=== PATIENT | female | born 1995 | race American Indian/Alaskan Native ===

== ENCOUNTER 2022-04-10 21:04 | Emergency (ER) | payer MEDICAID, SELFPAY ==
[2022-04-10] VITALS (7 sets, daily range): BP systolic 107–118; BP diastolic 75–85; PULSE 94–128; RESP 14–23; TEMP 36.7; O2SAT 98–100
--- NOTE | ~2022-04-10 | CT_ITS ---
EXAMINATION: CT abdomen pelvis wo con DATE: 04/11/2022 00:44 INDICATION: Abdominal pain. Vomiting. Recent . TECHNIQUE: Computed tomography (CT) of the abdomen and pelvis was performed without intravenous contr ast. Automated exposure control and iterative reconstruction technique were employed. The dose-length product was 255.98 mGy-cm. COMPARISON: None. FINDINGS: The visualized portions of the lung bases demonstrate mild atelectasis on the left. No pleu ral effusion. The heart size is normal. No pericardial effusion. Calcifications in the liver consiste nt with old granulomatous disease. The gallbladder, spleen, pancreas, adrenal glands, and left kidney are normal. There is a 3 mm stone in right kidney. There are no dilated loops of bowel. The appendix is normal. There are no pathologically enlarged lymph nodes. There is no free intraperitoneal fluid. IMPRESSION: 1. 3 mm nonobstructing right kidney stone. Reviewed, dictated and finalized at location A.
[2022-04-10 22:57] LABS: Basophils Absolute Auto 0.1 K/mm3 (0.0-0.1); Basophils Percent Auto 0.5 % (0.2-1.2); Eosinophils Absolute Auto 0.1 K/mm3 (0-0.3); Eosinophils Percent Auto 0.7 % (0-4.4); Hematocrit 48.3 % (37.0-47.0); Hemoglobin 16.3 g/dL (12.0-15.0); Immature Granulocyte Absolute 0.06 K/mm3 (0.00-0.031); Immature Granulocyte Percent A 0.4 % (0-0.5); Lymphocytes Absolute Auto 2.73 K/mm3 (0.9-3.2); Lymphocytes Percent Auto 18.4 % (18.3-44.2); Mean Corpuscular HGB Conc 33.7 g/dl (32-36); Mean Corpuscular Hemoglobin 30.9 pg (26-34); Mean Corpuscular Volume 91.7 fl (80-100); Mean Platelet Volume 9.1 fl (7.4-10.4); Monocytes Absolute Auto 0.9 K/mm3 (0.1-0.6); Monocytes Percent Auto 5.7 % (2.6-8.5); Neutrophils Percent Auto 74.3 % (45.5-73.1); Platelet Count Result 459 k/mm3 (150-375); Red Blood Count 5.27 M/mm3 (4.2-5.4); Red Cell Distribution Width 13.1 % (11.5-14.5); White Blood Count 14.9 K/mm3 (4.5-10.0)
[2022-04-10 23:10] LABS: Alanine Aminotransferase 57 U/L (6-35); Alkaline Phosphatase 70 U/L (38-126); Anion Gap 14 mmol/L (8-16); Aspartate Amino Transferase 64 U/L (14-36); Bilirubin,Total 0.8 mg/dL (0.2-1.3); Blood Urea Nitrogen 8 mg/dL (7-17); Calcium 10.8 mg/dL (8.4-10.2); Carbon Dioxide 25 mmol/L (22-30); Chloride 103 mmol/L (98-107); Estimated Glomerular Filt Rate > 60; Glucose 130 mg/dL (65-110); Lipase 92 U/L (23-300); Potassium 4.3 mmol/L (3.4-5.0); Sodium 142 mmol/L (137-145)
--- NOTE | 2022-04-10 23:17 | ED.NAVMDI ---
HPI - Nausea/Vomiting/Diarrhea General Chief complaint: Nausea/Vomiting/Diarrhea <BRI Self Last Filed: 04/11/22 03:46> Stated complaint: vomiting blood <BRI Self Last Filed: 04/11/22 03:46> Time Seen by Provider: 04/10/22 23:06 <BRI Self Last Filed: 04/11/22 03:46> Source: patient <BRI Self Last Filed: 04/11/22 03:46> Mode of arrival: ambulatory <BRI Self Last Filed: 04/11/22 03:46> Limitations: no limitations <BRI Self Last Filed: 04/11/22 03:46> History of Present Illness HPI Narrative: This is a 27-year-old female that presents to the emergency department for abdominal pain and vomiting. Reports a recent elective at [facility] in the middle of March. She has had ongoing abdominal pain and vomiting since. She was actually admitted to [facility] on March 25 for IV antibiotics for diagnosis of endometritis. She has continued metronidazole and doxycycline. She is almost finished with her antibiotics. She continues to experience vomiting and abdominal discomfort. Today she saw small amount of blood in her vomit. Denies fever or dysuria. <BRI Self Last Filed: 04/11/22 03:46> Related Data Allergies/Adverse reactions: Allergies Allergy/AdvReac Type Severity Reaction Status Date / Time No Known Allergies Allergy Verified 04/10/22 22:05 <BRI Self Last Filed: 04/11/22 03:46> Review of Systems Review of Systems: CONSTITUTIONAL: Denies fever GASTROINTESTINAL: Reports abdominal pain, nausea, vomiting GENITOURINARY: Denies dysuria or hematuria. <BRI Self Last Filed: 04/11/22 03:46> All systems reviewed & are unremarkable except as noted in HPI and below <BRI Slef Last Filed: 04/11/22 03:46> [facility] Past Medical History Medical History: Medical History (Updated 04/11/22 @ 02:27 by Onelia Camacho PA-C) No active medical problems <Onelia Camacho PA-C - Last Filed: 04/11/22 03:46> Social History Social History: Social History (Updated 04/10/22 @ 23:20 by Onelia Camacho PA-C) Smoking status: Never smoker <Onelia Camacho PA-C - Last Filed: 04/11/22 03:46> Exam Narrative: GENERAL: Well-appearing, well-nourished, and in no acute distress. HEAD: Normocephalic, atraumatic. EYES: EOMI. CHEST: Clear to auscultation. No respiratory distress. No wheezes rales or rhonchi HEART: Regular rate and rhythm. No murmur heard. Normal peripheral pulses. ABDOMEN: Soft, nondistended, normal active bowel sounds. Mild tenderness to palpation in the epigastrium, without guarding EXTREMITIES: Normal range of motion. No edema. SKIN: Warm, dry, no rash. NEURO: No focal deficits. Alert and oriented x3. PSYCH: Normal mood and affect <Onelia Camacho PA-C - Last Filed: 04/11/22 03:46> Course Reevaluation(s) Reevaluation #1: Received signout on the patient pending repeat lactate. On reevaluation patient reports feeling much improved repeat lactate was improved. Patient reports he already has an appointment with OB. Patient family are comfortable with outpatient plan. <Felix Contreras MD - Last Filed: 04/11/22 05:02> Date: 04/11/22 <Felix Contreras MD - Last Filed: 04/11/22 05:02> Time: 04:36 <Felix Contreras MD - Last Filed: 04/11/22 05:02> Consultations Consultation #1: Spoke with Dr. Clements about patient and workup. Agrees with further outpatient follow up as she has scheduled <Onelia Camacho PA-C - Last Filed: 04/11/22 03:46> Date: 04/11/22 <Onelia Camacho PA-C - Last Filed: 04/11/22 03:46> Vital Signs Vital signs: Vital Signs Temperature 36.7 C 04/10/22 22:03 Pulse Rate 115 H 04/10/22 22:03 Respiratory Rate 18 04/10/22 22:03 Blood Pressure 113/85 04/10/22 22:03 Pulse Oximetry 98 04/10/22 22:03 Oxygen Delivery Room Air 04/10/22 22:
[2022-04-10] MEDS: SODIUM CHLORIDE 0.9% IV 1,000 ML 999 ML IV CONT (23:47)
[2022-04-10] MEDS: ONDANSETRON INJ 4 MG/2 ML VIAL IV PUSH (23:48)
[2022-04-10] MEDS: PANTOPRAZOLE SODIUM IV 40 MG VIAL IV PUSH (23:48)
[2022-04-11] VITALS (20 sets, daily range): BP systolic 96–116; BP diastolic 67–86; PULSE 73–106; RESP 15–27; O2SAT 99–100
[2022-04-11 00:06] LABS: Lactic Acid Reflex 2.5 mmol/L (0.7-2.0)
[2022-04-11 00:08] LABS: INR 1.2; Prothrombin Time 14.3 Seconds (11.1-14.7)
[2022-04-11 00:09] LABS: Partial Thromboplastin Time 28.4 SECONDS (22.3-36.8)
[2022-04-11 00:41] LABS: Appearance Urine Clear (Clear); Bilirubin Urine Negative (Negative); Blood Urine Trace-lysed (Negative); Color Urine Yellow (Yellow); Glucose Urine UA Negative (Negative); Ketones Urine Negative (Negative); Leukocyte Esterase Ur Negative LEU/UL (Negative); Nitrate Urine Negative (Negative); Protein Urine 1+ mg/dL (Negative); Specific Grav Ur 1.025 (1.001-1.035); Urobilinogen Urine 0.2 mg/dL (<2.0); pH Urine 5.5 (5.0-9.0)
[2022-04-11 00:54] LABS: Mucus Urine Rare /lpf; Squamous Epithelial Cell Urine Moderate /hpf (Few); WBC Urine 21-30 /hpf
[2022-04-11 00:58] LABS: Add Urine Microscopic? YES
[2022-04-11 01:03] LABS: Beta HCG Quantitative 4.24 mIU/ML
[2022-04-11] MEDS: SODIUM CHLORIDE 0.9% IV 1,000 ML 999 ML IV CONT (02:10)
[2022-04-11] MEDS: METOCLOPRAMIDE HCL INJ 10 MG/2 ML VIAL IV PUSH (02:39)
[2022-04-11] MEDS: diphenhydrAMINE HCl INJ 50 MG/ML VIAL 25 MG IV PUSH (02:39)
[2022-04-11 02:55] LABS: Reflex Lactic Acid Yes or No Add Lactic
== END 2022-04-11 04:59 | disposition home or self-care (01) ==
PROVIDERS: Physician Assistant; Emergency Provider Emergency Medicine
DX: R11.2 Nausea with vomiting, unspecified (principal)
CPT/HCPCS: 36415; 74176; 80053; 81001; 81025; 83605; 83690; 84702; 85025; 85610; 85730; 87040; 87086; 87088; 96361; 96365; 96374; 96375; 99284; C9113; J0131; J1200; J2405; J2765; J7030

== ENCOUNTER 2023-01-03 14:01 | Emergency (ER) | payer OTHER, SELFPAY ==
--- NOTE | ~2023-01-03 | XR_ITS ---
EXAMINATION: XR wrist RT min 3V DATE: 01/03/2023 14:15 INDICATION: Right wrist injury and pain. TECHNIQUE: 4 views of right wrist were obtained. COMPARISON: None. FINDINGS: Bone alignment is normal. No fracture. Joint spaces are well maintained. IMPRESSION: 1. Normal right wrist. Reviewed, dictated and finalized at location A. [facility] IMPRESSION: 1. Normal right wrist.
[2023-01-03 14:03] VITALS: BP 117/81; PULSE 94; RESP 14; TEMP 36.6; O2SAT 100
--- NOTE | 2023-01-03 14:26 | ED.UPPEXIN ---
HPI - Extremity Injury (Upper) General Chief Complaint: Extremity Injury, Upper Stated Complaint: right wrist injury Time Seen by Provider: 01/03/23 14:07 History of Present Illness HPI narrative: Patient is a 27-year-old female who presents ER with right wrist pain. She was at work using machine when her hand slipped off and suffered a ripping sensation. This occurred 5 days ago. Patient began having pain 2 days ago. She has been wrapping her wrist and took ibuprofen x2. Pain continues today so she went to be evaluated. She reports some tingling over the dorsal aspect of her hand but not in her fingers or the palm. She has pain with range of motion but is able to still perform movements. No additional concerns. Related Data Allergies Allergy/AdvReac Type Severity Reaction Status Date / Time No Known Allergies Allergy Verified 01/03/23 14:05 Review of Systems Musculoskeletal: Musculoskeletal: Reports arthralgias, Denies joint swelling and Denies muscle cramps Integumentary/Breasts: Skin/Breast: Denies erythema and Denies rash Neurologic: Denies focal weakness and Denies numbness Comments: Tingling in the hand right side PMFSH Past Medical History Medical History (Updated 01/03/23 @ 14:32 by Shimon Bright MD) Depression Surgical History Surgical History (Updated 01/03/23 @ 14:32 by Shimon Bright MD) No history of previous surgery Social History Social History (System 05/12/22 @ 16:11 by Magen Ceja) Smoking status: Never smoker Exam Narrative: GENERAL: Well-appearing, well-nourished, and in no acute distress. HEAD: Normocephalic, atraumatic. EXTREMITIES: Focused exam of the right wrist reveals normal range of motion with flexion extension at the wrist as well as in the fingers. There is discomfort over the dorsal wrist without swelling or bruising or abrasion. Ecchymosis mild tenderness at the ulnar styloid. Neurovascular intact throughout the right hand and wrist. Normal range of motion no tenderness at the right elbow. SKIN: Warm, dry, no rash. NEURO: No focal deficits. Alert and oriented x3. PSYCH: Normal mood and affect. Course Course Emergency Course: Patient resting comfortably. Informed of results. Recommend purchasing a cock up wrist splint at a local box store. Also recommend scheduled anti-inflammatories. Discharge home Vital Signs Vital signs: Vital Signs Temperature 97.8 F 01/03/23 14:03 Pulse Rate 94 01/03/23 14:03 Respiratory Rate 14 01/03/23 14:03 Blood Pressure 117/81 01/03/23 14:03 Pulse Oximetry 100 01/03/23 14:03 Temperature 97.8 F 01/03/23 14:03 Pulse Rate 94 01/03/23 14:03 Respiratory Rate 14 01/03/23 14:03 Blood Pressure 117/81 01/03/23 14:03 Pulse Oximetry 100 01/03/23 14:03 MDM - Extremity Injury (Upper) Imaging Data Radiologist's impression: ITS Impressions Wrist X-Ray 01/03/23 14:17 IMPRESSION: 1. Normal right wrist. Discharge Plan Discharge Clinical Impression: Sprain and strain of wrist Patient Disposition: Home, Self-Care Condition: Stable Instructions: Wrist Sprain (ED) Additional Instructions: There is no evidence of broken bones in your wrist. It is recommended you purchase a cock up wrist splint from [employer] or [facility] ([place]). The splint for comfort. Take ibuprofen 3 times a day to help with inflammation. Follow-up with your primary care doctor for further treatment evaluation. Return the ER if you suffer additional injury, if fingers are cold water, or you have additional concerns. Prescriptions: New ibuprofen 600 mg tablet 600 mg PO TID Qty: 21 0RF No Action ondansetron 4 mg tablet,disintegrating 4 mg PO Q8H PRN (Reason: nausea and vomiting) Qty: 10 0RF levothyroxine 75 mcg tablet 75 mcg PO DAILY Qty: 90 3RF Follow-up/Referrals: PHYSICIAN NOT ON STAFF,NONSTAFF [Primary Care Provider] - 1 Week
== END 2023-01-03 14:55 | disposition home or self-care (01) ==
PROVIDERS: Emergency Provider Emergency Medicine
DX: S63.501A Unspecified sprain of right wrist, initial encounter (principal); F32.A Depression, unspecified; X50.0XXA Overexertion from strenuous movement or load, initial encounter
CPT/HCPCS: 73110; 99283